=== PATIENT | female | born 1990 | race Caucasian/White ===

== ENCOUNTER 2017-12-26 07:06 | Emergency (ER) | payer OTHER ==
[~2017-12-26] VITALS: Ht 157.5 cm; Wt 101.2 kg
[2017-12-26] MEDS ORDERED: PROPANOLOL PO (07:26)
[2017-12-26] MEDS ORDERED: SERTRALINE HCL100 MG PO (07:26)
[2017-12-26] MEDS ORDERED: UNICOMPLEX M TA1 TA1 PO (07:27)
[2017-12-26] MEDS ORDERED: NAPROSYN500 MG PO (08:10)
[2017-12-26] MEDS ORDERED: TRAMADOL 50 MG50 MG PO (08:10)
[2017-12-26 08:39] VITALS: BP 117/70
== END 2017-12-26 08:39 | disposition home or self-care (01) ==
LOC: ER 07:06
DX: S83.8X2A Sprain of other specified parts of left knee, initial encounter (principal); Z91.013 Allergy to seafood; Z87.828 Personal history of other (healed) physical injury and trauma; X50.1XXA Overexertion from prolonged static or awkward postures, initial encounter; Y93.89 Activity, other specified; Y92.89 Other specified places as the place of occurrence of the external cause; Y99.8 Other external cause status

== ENCOUNTER 2018-01-26 19:02 | Emergency (ER) | payer OTHER ==
[~2018-01-26] VITALS: Ht 157.5 cm; Wt 102.1 kg
[~2018-01-26 19:02] MED LIST: NAPROSYN500 MG PO; PROPANOLOL PO; SERTRALINE HCL100 MG PO; TRAMADOL 50 MG50 MG PO; UNICOMPLEX M TA1 TA1 PO
[2018-01-26 19:08] VITALS: BP 123/84
[2018-01-26] MEDS ORDERED: MEDROLDOSEPACK PO (19:20)
[2018-01-26] MEDS ORDERED: IBUPROFEN 600600 M1 PO (19:20)
[2018-01-26] MEDS ORDERED: TRAMADOL 50 MG50 MG PO (19:20)
== END 2018-01-26 19:42 | disposition home or self-care (01) ==
LOC: ER 19:02
DX: M26.602 Left temporomandibular joint disorder, unspecified (principal); Z91.013 Allergy to seafood

== ENCOUNTER → 2019-06-14 | Outpatient (CLI) | payer OTHER ==
[~2019-06-14] MED LIST changes: +IBUPROFEN 600600 M1 PO; +MEDROLDOSEPACK PO
== END ==
LOC: ULTRA 11:28
DX: N83.291 Other ovarian cyst, right side (principal)